=== PATIENT | male | born 1965 | race Caucasian/White ===

== ENCOUNTER → 2021-07-23 15:39 | Outpatient (CLI) | payer OTHER, SELFPAY ==
--- NOTE | ~2021-07-23 | XR_ITS ---
EXAMINATION: XR chest 2V 07/23/2021 16:01 INDICATION: Cough and dyspnea PROCEDURE: 2 view chest COMPARISON: 08/25/2018 FINDINGS: The lungs are clear. The cardiomediastinal silhouette is within normal limits. There are no pleural effusions. There is no pneumothorax suspected. IMPRESSION: 1: NO ACUTE CARDIOPULMONARY DISEASE. Reviewed, dictated and finalized at location A. F LENDING OFFICER
== END ==
PROVIDERS: PCP Family Medicine; Visit Provider Nurse Practitioner Family
DX: R05.9 Cough, unspecified (principal)
CPT/HCPCS: 71046

== ENCOUNTER → 2021-07-24 08:12 | Outpatient (CLI) | payer OTHER, SELFPAY ==
[2021-07-25 02:03] LABS: SARS-CoV-2 RNA PCR Negative
== END ==
PROVIDERS: PCP Family Medicine; Visit Provider Nurse Practitioner Family
DX: R68.89 Other general symptoms and signs (principal); Z20.822 Contact with and (suspected) exposure to COVID-19
CPT/HCPCS: C9803; U0003; U0005

== ENCOUNTER → 2021-12-11 15:13 | Outpatient (CLI) | payer OTHER, SELFPAY ==
--- NOTE | ~2021-12-11 | XR_ITS ---
EXAMINATION: XR chest 2V Exam Date/Time: 12/11/2021 15:20 CDT CLINICAL HISTORY: R05.9 - Cough, unspecified Comparison: 07/23/2021. RESULT: Lines, tubes, and devices: None. Lungs and pleura: Clear. Cardiomediastinal silhouette: Stable cardiomediastinal silhouette. Other: No acute osseous or upper abdominal finding. IMPRESSION: No acute cardiopulmonary process Reviewed, dictated and finalized at location K.
--- NOTE | ~2021-12-11 | XR_ITS ---
EXAM: XR foot LT 2V HISTORY: M79.5 - Residual foreign body in soft tissue COMPARISON: None available FINDINGS: Normal mineralization. No fracture or dislocation. No lytic or blastic lesion. Mild hallux valgus. Moderate degenerative change at the tibiotalar joint. Moderate ankle joint effusion. Vascula r calcifications. No erosion or periosteal change. 2 mm radiopaque foreign body in the lateral soft t issues adjacent to the fifth metatarsal. No subcutaneous emphysema. IMPRESSION: 2 mm radiopaque foreign body in the soft tissues lateral to the fifth metatarsal shaft. Reviewed, dictated and finalized at location K. IMPRESSION: 2 mm radiopaque foreign body in the soft tissues lateral to the fifth metatarsa l shaft.
== END ==
PROVIDERS: PCP Family Medicine; Visit Provider Nurse Practitioner Family
DX: R05.9 Cough, unspecified (principal); M79.5 Residual foreign body in soft tissue
CPT/HCPCS: 71046; 73620

== ENCOUNTER 2022-10-14 12:27 | Outpatient (CLI) | payer OTHER, SELFPAY ==
[2022-10-20 17:37] LABS: Calprotectin, Stool 56 mcg/g
[2022-10-22 15:09] LABS: Pancreatic Elastase, Stool 317 mcg/g
== END 2022-10-14 12:28 | disposition home or self-care (01) ==
PROVIDERS: PCP Family Medicine; Visit Provider Nurse Practitioner
DX: R14.0 Abdominal distension (gaseous) (principal); K52.9 Noninfective gastroenteritis and colitis, unspecified; K90.9 Intestinal malabsorption, unspecified
CPT/HCPCS: 82653; 83993

== ENCOUNTER 2022-11-29 02:57 | Day surgery (SDC) | payer OTHER, SELFPAY ==
[2022-11-20 13:17] VITALS: BMI 34.8
--- NOTE | 2022-11-28 17:15 | PM.HPGS ---
History of Present Illness History of Present Illness Consent: Risks, benefits, and alternatives have been discussed and questions answered. Patient agrees to proceed with procedure. Chief complaint: hx colon polyps,gastroenteritis colitis unspecifie Narrative: Riaz Polanco II is a 57 year old male With a history of colon polyps. He has serrated adenomas removed 6 years ago. he has also had other issues lately. He was seen in our office?for abdominal bloating and abdominal pain.? He has a past medical history of Kate-en-Y for weight loss in 2009.? Has a history of adenomatous colon polyps, hypertension and essential tremors (seeing neurology).? He states ever since he had the Kate-en-Y surgery for weight loss he has had chronic diarrhea that he states are ?runny, slimy, mucous and yellow.? He states his feels like they smell bad as well. He states they have gotten worse in the last 5 years and then in the last 3 years fecal urgency has significantly worsened as well. Review of Systems Review of Systems: All systems reviewed & are unremarkable except as noted in HPI and below PMFSH Past Medical History Medical History Adult BMI 34.0-34.9 kg/sq m BMI 31.0-31.9,adult BMI 32.0-32.9,adult Chronic diarrhea Diarrhea Erectile dysfunction Hx of adenomatous colonic polyps Hypertension Screening for prostate cancer Sleep disturbance Steatorrhea Tremor of both hands Surgical History Surgical History History of Kate-en-Y gastric bypass Family History Family History Father Family history of heart disease in male family member before age 55 COPD (chronic obstructive pulmonary disease) Mother COPD (chronic obstructive pulmonary disease) Sibling No problems noted. Social History Social History Smoking status: Never smoker Second hand tobacco smoke exposure: Yes Alcohol intake: current Drinks per week: 10 Alcohol use details: red wine Substance use: never Substance use type: does not use Living arrangements: with family Occupation/Education: occupation Additional occupation/education comments: school Gender identity (if verbalized by the patient): Male Spiritual care concerns: No Meds Home Medications and Allergies Home Medications Medication Instructions Recorded Confirmed Type syringe with needle, safety 3 mL #100 ea 10/18/20 11/29/22 Rx 25 gauge x 5/8 (Monoject Safety Syringes) cholecalciferol (vitamin D3) 25 25 mcg PO DAILY 11/28/20 11/29/22 History mcg (1,000 unit) capsule levetiracetam 250 mg tablet 250 mg PO DAILY 03/01/21 11/29/22 History (Keppra) cyanocobalamin (vitamin B-12) 1,000 mcg IM .[id number] #25 mL 07/23/21 11/29/22 Rx 1,000 mcg/mL injection solution albuterol sulfate 2.5 mg/3 mL 2.5 mg (3 mL) inhalation Q4-6H PRN 12/11/21 11/29/22 Rx (0.083 %) solution for nebulization shortness of breath or wheezing #90 mL fluticasone 250 mcg-salmeterol 50 1 inh inhalation BID 12/11/21 11/29/22 History mcg/dose blistr powdr for inhalation (Advair Diskus) metoprolol succinate 50 mg 100 mg PO DAILY #180 tabs 05/11/22 11/29/22 Rx tablet,extended release 24 hr albuterol sulfate 90 mcg/actuation 1 inh inhalation Q4H PRN shortness 06/04/22 11/29/22 Rx aerosol inhaler (ProAir HFA) of breath or wheezing #6.7 grams benazepril 10 1 tablet PO DAILY #30 tabs 07/11/22 11/29/22 Rx mg-hydrochlorothiazide 12.5 mg tablet azelastine 205.5 mcg (0.15 %) 2 spray intranasal DAILY PRN 11/20/22 11/29/22 History nasal spray Allergy Symptoms montelukast 10 mg tablet 10 mg PO DAILY 11/20/22 11/29/22 History Allergies Allergy/AdvReac Type Severity Reaction Status Date / Time morphine Allergy Intermediate ITCH AND Verified 11/29/22 08:
[2022-11-29 08:12] VITALS: BP 148/106; PULSE 74; RESP 16; TEMP 36.6; O2SAT 99; BMI 35.5
[2022-11-29] MEDS: LACTATED RINGERS 1,000 ML 150 ML IV CONT (08:24)
--- NOTE | 2022-11-29 08:41 | WPDANESEPPF ---
Anes - Initial Pre Proc Eval Procedure: Operation Date: 11/29/22 09:00 Proposed Procedures p Colonoscopy - Van Ruano MD Date/Time: 11/29/22 08:41 Surgeon: Van Ruano MD Pre Op Diagnosis: hx colon polyps,gastroenteritis colitis unspecifie Patient Data Age: 57 Gender: M Height: 1.75 m Weight: 109.1 kg Last Vital Signs Temp 97.8 F 11/29/22 08:12 Pulse 74 11/29/22 08:12 Resp 16 11/29/22 08:12 BP 148/106 H 11/29/22 08:12 Pulse Ox 99 11/29/22 08:12 O2 Del Method Room Air 11/29/22 08:12 Allergies Allergy/AdvReac Type Severity Reaction Status Date / Time morphine Allergy Intermediate ITCH AND Verified 11/29/22 08:11 IRRITABLE BIRD DANDER Allergy Intermediate EYES Uncoded 11/20/22 13:11 SWELLING,DIFFICULTY BREATHING,HIVES Cat Dander Allergy Intermediate EYE Uncoded 11/20/22 13:11 SWELLING,DIFFICULTY BREATHING,HIVES Horse Dander Allergy Unknown EYE Uncoded 11/20/22 13:11 SWELLING,DIFFICULTY BREATHING,HIVES Home Medications Medication Instructions Recorded Confirmed Type syringe with needle, safety 3 mL #100 ea 10/18/20 11/29/22 Rx 25 gauge x 5/8 (Monoject Safety Syringes) cholecalciferol (vitamin D3) 25 25 mcg PO DAILY 11/28/20 11/29/22 History mcg (1,000 unit) capsule levetiracetam 250 mg tablet 250 mg PO DAILY 03/01/21 11/29/22 History (Keppra) cyanocobalamin (vitamin B-12) 1,000 mcg IM .[id number] #25 mL 07/23/21 11/29/22 Rx 1,000 mcg/mL injection solution albuterol sulfate 2.5 mg/3 mL 2.5 mg (3 mL) inhalation Q4-6H PRN 12/11/21 11/29/22 Rx (0.083 %) solution for nebulization shortness of breath or wheezing #90 mL fluticasone 250 mcg-salmeterol 50 1 inh inhalation BID 12/11/21 11/29/22 History mcg/dose blistr powdr for inhalation (Advair Diskus) metoprolol succinate 50 mg 100 mg PO DAILY #180 tabs 05/11/22 11/29/22 Rx tablet,extended release 24 hr albuterol sulfate 90 mcg/actuation 1 inh inhalation Q4H PRN shortness 06/04/22 11/29/22 Rx aerosol inhaler (ProAir HFA) of breath or wheezing #6.7 grams benazepril 10 1 tablet PO DAILY #30 tabs 07/11/22 11/29/22 Rx mg-hydrochlorothiazide 12.5 mg tablet azelastine 205.5 mcg (0.15 %) 2 spray intranasal DAILY PRN 11/20/22 11/29/22 History nasal spray Allergy Symptoms montelukast 10 mg tablet 10 mg PO DAILY 11/20/22 11/29/22 History Patient hx anesthesia problems: none Family hx anesthesia problems: none Results Review: All pre-operative results and documents have been reviewed as part of the pre-operative evaluation. [facility] Past Medical History Medical History Adult BMI 34.0-34.9 kg/sq m BMI 31.0-31.9,adult BMI 32.0-32.9,adult Chronic diarrhea Diarrhea Erectile dysfunction Hx of adenomatous colonic polyps Hypertension Screening for prostate cancer Sleep disturbance Steatorrhea Tremor of both hands Surgical History Surgical History History of Kate-en-Y gastric bypass Family History Family History Father Family history of heart disease in male family member before age 55 COPD (chronic obstructive pulmonary disease) Mother COPD (chronic obstructive pulmonary disease) Sibling No problems noted. Social History Social History Smoking status: Never smoker Second hand tobacco smoke exposure: Yes Alcohol intake: current Drinks per week: 10 Alcohol use details: red wine Substance use: never Substance use type: does not use Living arrangements: with family Occupation/Education: occupation Additional occupation/education comments: school Gender identity (if verbalized by the patient): Male Spiritual care concerns: No Anes - Eval Final PreProcedure Day of Procedure 11/29/22
[2022-11-29 09:08] VITALS: BP 128/75; PULSE 63; RESP 20; O2SAT 99
[2022-11-29 09:18] VITALS: BP 138/95; PULSE 59; RESP 21; O2SAT 95
[2022-11-29 09:28] VITALS: BP 138/86; PULSE 55; RESP 17; O2SAT 99
== END 2022-11-29 09:39 | disposition home or self-care (01) ==
PROVIDERS: PCP Family Medicine; Visit Provider Internal Medicine Gastroenterology
PROC: 0DJD8ZZ Inspection of Lower Intestinal Tract, Via Natural or Artificial Opening Endoscopic (ICD-10-PCS; CPT 45378; principal; 2022-11-29 09:00)
DX: Z12.11 Encounter for screening for malignant neoplasm of colon (principal); R19.7 Diarrhea, unspecified; Z86.010 Personal history of colon polyps; I10 Essential (primary) hypertension; G25.0 Essential tremor; Z98.84 Bariatric surgery status; E66.9 Obesity, unspecified; Z68.35 Body mass index [BMI] 35.0-35.9, adult; Z79.51 Long term (current) use of inhaled steroids
CPT/HCPCS: 45380; 88305; J2704; J7120

== ENCOUNTER 2023-02-28 12:32 | Outpatient (CLI) | payer OTHER, SELFPAY ==
--- NOTE | ~2023-02-28 | XR_ITS ---
XR abdomen/kub 1V DATE: 02/28/2023 11:48 INDICATION: Nausea, abdominal distention and bloating TECHNIQUE: 2 supine AP views COMPARISON: 02/28/2023 CT abdomen pelvis FINDINGS: A short dilated gas distended small bowel segment overlies the left mid to upper abdomen. P ostoperative change from gastric bypass procedure is noted. Consider postoperative anastomotic strict ure. The psoas shadows are intact. No visceromegaly is detected. No significant abnormal calcification is noted. IMPRESSION: Short segment dilated gas distended small bowel segments near anastomotic sutures in the left midabdomen; consider an anastomotic stricture. Reviewed, dictated and finalized at Location A. Reviewed, dictated and finalized at location B. IMPRESSION: Short segment dilated gas distended small bowel segments near anast omotic sutures in the left midabdomen; consider an anastomotic stricture.
[2023-02-28 11:46] LABS: Hemoglobin 16.5 g/dL (14.0-18.0); Mean Corpuscular HGB Conc 33.7 g/dl (32-36); Mean Corpuscular Hemoglobin 32.9 pg (26-34); Mean Corpuscular Volume 97.8 fl (80-100); Mean Platelet Volume 10.1 fl (7.4-10.4); Platelet Count Result 172 k/mm3 (150-375); Red Blood Count 5.01 M/mm3 (4.6-6.20)
[2023-02-28 12:00] LABS: Alanine Aminotransferase 113 U/L (6-50); Albumin Level 4.5 g/dL (3.5-5.1); Alkaline Phosphatase 66 U/L (38-126); Amylase 112 U/L (30-110); Anion Gap 8 mmol/L (8-16); Aspartate Amino Transferase 156 U/L (17-59); Bilirubin,Total 1.2 mg/dL (0.2-1.3); Blood Urea Nitrogen 10 mg/dL (9-20); Calcium 9.1 mg/dL (8.4-10.2); Carbon Dioxide 30 mmol/L (22-30); Chloride 96 mmol/L (98-107); Estimated Glomerular Filt Rate > 60; Glucose 95 mg/dL (65-110); Lipase 322 U/L (23-300); Potassium 4.4 mmol/L (3.4-5.0); Sodium 134 mmol/L (137-145)
[2023-02-28 12:20] LABS: CRP < 0.5 mg/dL (<1.0)
[2023-02-28 12:40] LABS: Erythrocyte Sedimentation Rate 1 mm/hr (0-20)
[2023-02-28 13:45] LABS: Hepatitis B Surface Antigen Negative (Negative)
[2023-02-28 13:50] LABS: HAV RESULT Negative (Negative); Hepatitis B Core IgM Result Negative (Negative)
[2023-02-28 14:02] LABS: Hepatitis C Virus Antibody Negative (Negative)
[2023-02-28 16:37] LABS: Cholesterol 174 mg/dL (0-200); LDL Cholesterol Direct 43 mg/dL; Triglycerides 85 mg/dL (<150)
[2023-02-28 16:56] LABS: Prostate Specific Antigen 8.2 ng/mL (< OR = 4.0)
[2023-02-28 17:11] LABS: HDL Direct 124 mg/dL
== END 2023-02-28 12:33 | disposition home or self-care (01) ==
LOC: ANHLAB 12:32
PROVIDERS: PCP Family Medicine; Visit Provider Nurse Practitioner
DX: R19.15 Other abnormal bowel sounds (principal); R63.0 Anorexia; R14.0 Abdominal distension (gaseous); R11.0 Nausea; R63.4 Abnormal weight loss; Z98.84 Bariatric surgery status; E66.9 Obesity, unspecified; K76.0 Fatty (change of) liver, not elsewhere classified; N40.0 Benign prostatic hyperplasia without lower urinary tract symptoms
CPT/HCPCS: 36415; 74018; 80053; 80061; 80074; 82150; 83690; 84153; 84443; 85027; 85652; 86140; G0103

== ENCOUNTER 2023-02-28 13:58 | Outpatient (CLI) | payer OTHER, SELFPAY ==
--- NOTE | ~2023-02-28 | CT_ITS ---
EXAMINATION: CT abdomen pelvis w con DATE: 02/28/2023 14:42 INDICATION: Nausea, abdominal distention and bloating. History of gastric bypass surgery in 2009 TECHNIQUE: Computed tomography (CT) of the abdomen and pelvis was performed with 100 CC Omnipaque 350 intravenous contrast. Automated exposure control and iterative reconstruction technique were employe d. Exam dose: 889.83 mGy-cm total exam DLP. COMPARISON: 02/28/[address] abdomen FINDINGS: The lung bases are clear. Normal heart size. No pericardial or pleural effusion. There is diffuse hepatic steatosis. No hepatic space-occupying mass lesion. The gallbladder appears u nremarkable. No bile duct or pancreatic duct dilatation. No pancreatic mass lesion or calcification. Normal splenic size. Normal morphology of the adrenal glands. No renal mass lesion with the exception of a stable approximately 1.5 cm left renal cyst, present on 06/01/2018. Postoperative change of the stomach from gastric bypass procedure. Up to 4.7 cm diameter of a short segment of the small bowel at the anastomotic site in the left midab domen, previously measuring up to 4.5 cm on 06/01/2018. Diverticulosis of the colon; no CT evidence of diverticulitis. Normal appendix. No intraperitoneal free air. Moderate prostate enlargement and mild calcification. Moderate diffuse thickening of the urinary blad pricilla wall. The bladder is relatively evacuated. Normal caliber of the abdominal aorta. No intraperitoneal or retroperitoneal or pelvic mass lesion or adenopathy or ascites. Small fat-containing umbilical hernia. IMPRESSION: Status post gastric bypass; fluid level at 4.7 cm diameter small bowel anastomotic site in left midabdomen (not appreciably changed from 4.5 cm diameter on 06/01/2018) may indicate partial obstruction Hepatic steatosis Diverticulosis of the colon; no evidence of diverticulitis Normal appendix Reviewed, dictated and finalized at Location A. Reviewed, dictated and finalized at location B. IMPRESSION: Status post gastric bypass; fluid level at 4.7 cm diameter small b owel anastomotic site in left midabdomen (not appreciably changed from 4.5 cm d iameter on 06/01/2018) may indicate partial obstruction Hepatic steatosis Diverticulosis of the colon; no evidence of diverticulitis Normal appendix
== END 2023-02-28 13:59 | disposition home or self-care (01) ==
LOC: ANHIMG 14:01
PROVIDERS: PCP Family Medicine; Visit Provider Nurse Practitioner
DX: R11.0 Nausea (principal); R14.0 Abdominal distension (gaseous); R63.0 Anorexia; R19.15 Other abnormal bowel sounds; K76.0 Fatty (change of) liver, not elsewhere classified; K57.30 Diverticulosis of large intestine without perforation or abscess without bleeding
CPT/HCPCS: 36415; 74018; 74177; 80053; 80061; 80074; 82150; 83690; 84153; 84443; 85027; 85652; 86140; G0103; Q9967

== ENCOUNTER 2023-03-14 02:30 | Day surgery (SDC) | payer OTHER, SELFPAY ==
[2023-03-10 11:23] VITALS: BMI 32.8
--- NOTE | 2023-03-13 18:24 | PM.HPGS ---
History of Present Illness History of Present Illness Consent: Risks, benefits, and alternatives have been discussed and questions answered. Patient agrees to proceed with procedure. Chief complaint: nausea,bariatric surgery status,anorexia,abdom.dis Narrative: Riaz Polanco II is a 57 year old male Who has been havingsevere abdominal bloating, abdominal distension, nausea. He has history of gastric ulcer, gastric bypass and chronic diarrhea. He was having abdominal bloating back in October but states it has worsened last four weeks. He feels like something is wrong-thinks maybe an ulcer or blockage.? He states the thought of food makes him nauseous and increased salvation. He has been unable to eat due to these symptoms. He has no appetite. he has lost about 10 lb. When he eats he feels full as though the food is not digesting and is backing up nevertheless, he has loose stools almost every time he eats. About 4 years ago he had a bleeding ulcer which was apparently at the anastomosis from what he was told Review of Systems Review of Systems: All systems reviewed & are unremarkable except as noted in HPI and below PMFSH Past Medical History Medical History Abdominal distension Adult BMI 34.0-34.9 kg/sq m Bladder wall thickening BMI 31.0-31.9,adult BMI 32.0-32.9,adult Chronic diarrhea Decreased appetite Diarrhea Erectile dysfunction Hepatic steatosis High-pitched bowel sounds Hx of adenomatous colonic polyps Hypertension Nausea Obesity Partial obstruction of small intestine Prostate enlargement Screening for prostate cancer Sleep disturbance Steatorrhea Tremor of both hands Weight loss Surgical History Surgical History History of Kate-en-Y gastric bypass Family History Family History Father Family history of heart disease in male family member before age 55 COPD (chronic obstructive pulmonary disease) Mother COPD (chronic obstructive pulmonary disease) Sibling No problems noted. Social History Social History Smoking status: Never smoker Second hand tobacco smoke exposure: Yes Alcohol intake: current Drinks per week: 10 Alcohol use details: RED WINE Substance use: never Substance use type: does not use Living arrangements: with family Occupation/Education: occupation Additional occupation/education comments: school Gender identity (if verbalized by the patient): Male Spiritual care concerns: No Meds Home Medications and Allergies Home Medications Medication Instructions Recorded Confirmed Type syringe with needle, safety 3 mL #100 ea 10/18/20 03/10/23 Rx 25 gauge x 5/8 (Monoject Safety Syringes) cholecalciferol (vitamin D3) 25 25 mcg PO DAILY 11/28/20 03/10/23 History mcg (1,000 unit) capsule cyanocobalamin (vitamin B-12) 1,000 mcg IM .[id number] #25 mL 07/23/21 03/10/23 Rx 1,000 mcg/mL injection solution albuterol sulfate 2.5 mg/3 mL 2.5 mg (3 mL) inhalation Q4-6H PRN 12/11/21 03/10/23 Rx (0.083 %) solution for nebulization shortness of breath or wheezing #90 mL fluticasone 250 mcg-salmeterol 50 1 inh inhalation BID 12/11/21 03/10/23 History mcg/dose blistr powdr for inhalation (Advair Diskus) albuterol sulfate 90 mcg/actuation 1 inh inhalation Q4H PRN shortness 06/04/22 03/10/23 Rx aerosol inhaler (ProAir HFA) of breath or wheezing #6.7 grams azelastine 205.5 mcg (0.15 %) 2 spray intranasal DAILY PRN 11/20/22 03/10/23 History nasal spray Allergy Symptoms montelukast 10 mg tablet 10 mg PO DAILY 11/20/22 03/10/23 History benazepril 10 1 tablet PO DAILY #30 tabs 12/13/22 03/10/23 Rx mg-hydrochlorothiazide 12.5 mg tablet ondansetron 4 mg disintegrating 4 - 8 mg PO Q8H PRN nausea and 02/28/23 03/10/23 Rx tablet
[2023-03-14 11:13] VITALS: BP 141/88; PULSE 69; RESP 20; TEMP 36.6; O2SAT 100
--- NOTE | 2023-03-14 11:19 | WPDANESEPPF ---
Anes - Initial Pre Proc Eval Procedure: Operation Date: 03/14/23 12:30 Proposed Procedures p Esophagogastroduodenoscopy - Van Ruano MD Date/Time: 03/14/23 11:19 Surgeon: Van Ruano MD Pre Op Diagnosis: nausea,bariatric surgery status,anorexia,abdom.dis Patient Data Age: 57 Gender: M Height: 1.75 m Weight: 101.7 kg Last Vital Signs Temp 97.8 F 03/14/23 11:13 Pulse 69 03/14/23 11:13 Resp 20 03/14/23 11:13 BP 141/88 H 03/14/23 11:13 Pulse Ox 100 03/14/23 11:13 O2 Del Method Room Air 03/14/23 11:13 Allergies Allergy/AdvReac Type Severity Reaction Status Date / Time morphine Allergy Intermediate ITCH AND Verified 03/14/23 11:24 IRRITABLE BIRD DANDER Allergy Intermediate EYES Uncoded 03/14/23 11:24 SWELLING,DIFFICULTY BREATHING,HIVES Cat Dander Allergy Intermediate EYE Uncoded 03/14/23 11:24 SWELLING,DIFFICULTY BREATHING,HIVES Horse Dander Allergy Unknown EYE Uncoded 03/14/23 11:24 SWELLING,DIFFICULTY BREATHING,HIVES Home Medications Medication Instructions Recorded Confirmed Type syringe with needle, safety 3 mL #100 ea 10/18/20 03/10/23 Rx 25 gauge x 5/8 (Monoject Safety Syringes) cholecalciferol (vitamin D3) 25 25 mcg PO DAILY 11/28/20 03/10/23 History mcg (1,000 unit) capsule cyanocobalamin (vitamin B-12) 1,000 mcg IM .[id number] #25 mL 07/23/21 03/10/23 Rx 1,000 mcg/mL injection solution albuterol sulfate 2.5 mg/3 mL 2.5 mg (3 mL) inhalation Q4-6H PRN 12/11/21 03/10/23 Rx (0.083 %) solution for nebulization shortness of breath or wheezing #90 mL fluticasone 250 mcg-salmeterol 50 1 inh inhalation BID 12/11/21 03/10/23 History mcg/dose blistr powdr for inhalation (Advair Diskus) albuterol sulfate 90 mcg/actuation 1 inh inhalation Q4H PRN shortness 06/04/22 03/10/23 Rx aerosol inhaler (ProAir HFA) of breath or wheezing #6.7 grams azelastine 205.5 mcg (0.15 %) 2 spray intranasal DAILY PRN 11/20/22 03/10/23 History nasal spray Allergy Symptoms montelukast 10 mg tablet 10 mg PO DAILY 11/20/22 03/10/23 History benazepril 10 1 tablet PO DAILY #30 tabs 12/13/22 03/10/23 Rx mg-hydrochlorothiazide 12.5 mg tablet ondansetron 4 mg disintegrating 4 - 8 mg PO Q8H PRN nausea and 02/28/23 03/10/23 Rx tablet vomiting #30 tabs pantoprazole 40 mg tablet,delayed 40 mg PO BID #60 tabs 03/03/23 03/10/23 Rx release propranolol 80 mg capsule,24 80 mg PO DAILY #90 caps 03/07/23 03/10/23 Rx hr,extended release primidone 50 mg tablet 50 mg PO HS 03/10/23 03/10/23 History Patient hx anesthesia problems: none Family hx anesthesia problems: none Results Review: All pre-operative results and documents have been reviewed as part of the pre-operative evaluation. [facility] Past Medical History Medical History (Updated 02/28/23 @ 15:55 by Christiana Marvin, BRAIN) Abdominal distension Adult BMI 34.0-34.9 kg/sq m Bladder wall thickening BMI 31.0-31.9,adult BMI 32.0-32.9,adult Chronic diarrhea Decreased appetite Diarrhea Erectile dysfunction Hepatic steatosis High-pitched bowel sounds Hx of adenomatous colonic polyps Hypertension Nausea Obesity Partial obstruction of small intestine Prostate enlargement Screening for prostate cancer Sleep disturbance Steatorrhea Tremor of both hands Weight loss Surgical History Surgical History History of Kate-en-Y gastric bypass Family History Family History Father Family history of heart disease in male family member before age 55 COPD (chronic obstructive pulmonary disease) Mother COPD (chronic obstructive pulmonary disease) Sibling No problems noted. Social History Social History Smoking status: Never smoker Second hand tobacco smoke exposure: Yes Alcohol intake: c
[2023-03-14] MEDS: LACTATED RINGERS 1,000 ML 150 ML IV CONT (11:23)
[2023-03-14 11:43] VITALS: BP 117/76; PULSE 68; RESP 20; O2SAT 97
[2023-03-14 11:53] VITALS: BP 131/82; PULSE 66; RESP 20; O2SAT 100
[2023-03-14 12:03] VITALS: BP 148/87; PULSE 64; RESP 20; O2SAT 99
== END 2023-03-14 12:17 | disposition home or self-care (01) ==
PROVIDERS: PCP Family Medicine; Visit Provider Internal Medicine Gastroenterology
PROC: 0DJ08ZZ Inspection of Upper Intestinal Tract, Via Natural or Artificial Opening Endoscopic (ICD-10-PCS; CPT 43235; principal; 2023-03-14 12:30)
DX: K21.9 Gastro-esophageal reflux disease without esophagitis (principal); Z98.84 Bariatric surgery status; Z79.51 Long term (current) use of inhaled steroids; I10 Essential (primary) hypertension; K76.0 Fatty (change of) liver, not elsewhere classified; E66.9 Obesity, unspecified; Z68.33 Body mass index [BMI] 33.0-33.9, adult
CPT/HCPCS: 43239; 87081; 88305; J2704; J7120

== ENCOUNTER 2024-09-15 11:14 | Outpatient (CLI) | payer OTHER, SELFPAY ==
--- NOTE | ~2024-09-15 | XR_ITS ---
Clinical Indication: Cough PA and lateral views of the chest: Comparison: 12/11/2021 Findings: The lungs are clear, without evidence of focal consolidation or pleural effusion. Cardiome diastinal silhouette is within normal limits. Bones and soft tissues are unremarkable. Impression: Normal chest. Reviewed, dictated and finalized at location . ENTATION MANAGER Impression: Normal chest.
== END 2024-09-15 11:15 | disposition home or self-care (01) ==
LOC: MICIMG 11:15
PROVIDERS: PCP Family Medicine; Visit Provider Physician Assistant Medical
DX: R05.9 Cough, unspecified (principal)
CPT/HCPCS: 71046